=== PATIENT | male | born 1985 | race African-American/Black ===

== ENCOUNTER 2017-07-22 21:11 | Emergency (ER) | payer BC ==
[~2017-07-22] VITALS: Ht 193 cm; Wt 102.1 kg
[2017-07-22 21:21] VITALS: BP 142/70
== END 2017-07-22 21:33 | disposition home or self-care (01) ==
LOC: ER 21:25
DX: I35.1 Nonrheumatic aortic (valve) insufficiency (principal)
CPT/HCPCS: A4606; Z7502; Z7610